=== PATIENT | female | born 1930 | race Caucasian/White ===

== ENCOUNTER 2017-10-02 20:51 | Inpatient (IN) | payer BC ==
[~2017-10-02] VITALS: Ht 167.6 cm; Wt 59.2 kg
[2017-10-02] MEDS ORDERED: IPRATROPIUM BROMIDE 0.5 MG/2.5 ML NEBU NEB ONE (21:30)
[2017-10-02] MEDS ORDERED: ACETAMINOPHEN 650 MG SUPP.RECT RC ONE ×2 (21:30→22:06)
[2017-10-02] MEDS ORDERED: ALBUTEROL SULFATE 2.5 MG/3 ML NEBU NEB ONE (21:30)
[2017-10-02] MEDS ORDERED: ACETAMINOPHEN 325 MG SUPP RC ONE (21:30)
[2017-10-02 21:39] LABS: ABG BASE EXCESS -4.2 mmol/L; ABG PCO2 50.7 mmHg (35.0-45.0); ABG PH 7.275 (7.350-7.450); ABG PO2 74.3 mmHg (75.0-100.0); ABG SITE LEFT BRACHIAL; ABG TOTAL HEMOGLOBIN 14.1 G/dL (12.0-16.0); COHb 1.5 % (0.5-1.5); MetHb 0.2 % (0.0-1.5); O2Hb 91.7 % (94.0-97.0)
[2017-10-02] MEDS ORDERED: IPRATROPIUM BROMIDE 0.5 MG/2.5 ML NEBU ONE (21:40)
[2017-10-02] MEDS ORDERED: ALBUTEROL SULFATE 2.5 MG/3 ML NEBU ONE (21:40)
[2017-10-02] MEDS ORDERED: ACET-2154 PO (21:45)
[2017-10-02] MEDS ORDERED: MELA3TAB PO (21:45)
[2017-10-02] MEDS ORDERED: ALLO100T56 PO (21:45)
[2017-10-02] MEDS ORDERED: SENN-175 PO (21:45)
[2017-10-02] MEDS ORDERED: MULT-1045 PO (21:45)
[2017-10-02] MEDS ORDERED: MAGN400O6 PO (21:45)
[2017-10-02] MEDS ORDERED: DICL1KIT14 TP (21:45)
[2017-10-02] MEDS ORDERED: CARV3.12 PO (21:45)
[2017-10-02] MEDS ORDERED: ASPI-1094 PO (21:45)
[2017-10-02] MEDS ORDERED: CITA10TA17 PO (21:45)
[2017-10-02] MEDS ORDERED: NYST15OI TP (21:45)
[2017-10-02] MEDS ORDERED: QUET25TA34 PO (21:45)
[2017-10-02 21:53] LABS: BASOPHILS # (AUTO) 0.1 K/uL (0.0-8.0); BASOPHILS % (AUTO) 0.5 % (0.0-2.0); EOSINOPHILS % (AUTO) 0.1 % (0.0-7.0); HEMATOCRIT 42.9 % (31.2-41.9); LYMPHOCYTES # (AUTO) 1.9 K/uL (20.0-40.0); LYMPHOCYTES % (AUTO) 10.9 % (20.5-51.5); MEAN CORPUSCULAR HEMOGLOBIN 29.5 uug (24.7-32.8); MEAN CORPUSCULAR HGB CONC 33 g/dL (32.3-35.6); MEAN CORPUSCULAR VOLUME 90.5 fL (75.5-95.3); MONOCYTES % (AUTO) 5.5 % (0.0-11.0); NEUTROPHILS # (AUTO) 14.5 K/uL (1.8-8.9); PLATELET COUNT (AUTO) 341 K/uL (179-408); RED BLOOD CELL COUNT(AUTO) 4.74 MIL/uL (3.63-4.92); WHITE BLOOD COUNT (AUTO) 17.5 K/uL (3.8-11.8)
[2017-10-02 21:56] LABS: CARBON DIOXIDE 25 mmol/L (21-32); CHLORIDE 103 mmol/L (98-107); GLUCOSE 251 mg/dL (74-106); POTASSIUM 3.7 mmol/L (3.5-5.1); UREA NITROGEN, BLOOD 21 mg/dL (7-18)
[2017-10-02] MEDS ORDERED: ACETAMINOPHEN 325 MG SUPP ONE (22:06)
[2017-10-02 22:10] LABS: ALANINE AMINOTRANSFERASE 21 U/L (14-59); ALKALINE PHOSPHATASE 66 U/L (50-136); ASPARTATE AMINOTRANSFERASE 23 U/L (15-37); BILIRUBIN,DIRECT 0.1 mg/dL (0.0-0.2); BILIRUBIN,TOTAL 0.4 mg/dL (0.2-1.0); TOTAL PROTEIN, SERUM 7.2 g/dL (6.4-8.2)
[2017-10-02] MEDS ORDERED: PIPERACILLIN SODIUM/TAZOBACTAM 3.375 G in IV DEXTROSE 5% 50 ML IV ONE (22:15)
[2017-10-02] MEDS ORDERED: METRONIDAZOLE 500 MG/NS 100 ML PIGGYBACK IV ONE (22:15)
[2017-10-02] MEDS ORDERED: IV NORMAL SALINE 1000 ML BAG IV ONE (22:30)
[2017-10-02] MEDS ORDERED: DILTIAZEM HCL 25 MG IV IV ONE (22:45)
[2017-10-02 22:51] LABS: *BLOOD, URINE NEGATIVE (NEGATIVE); *CLARITY,URINE SLIGHTLY CLOUDY (CLEAR); *COLOR,URINE YELLOW (YELLOW); *KETONES,URINE NEGATIVE (NEGATIVE); *PROTEIN,URINE 2+ (NEGATIVE); *UROBILINOGEN,URINE 0.2 E.U./dl (NORMAL); LEUKOCYTE ESTERASE ,URINE NEGATIVE (NEGATIVE); NITRITE, URINE POSITIVE (NEGATIVE); UGLUCOSE NEGATIVE (NEGATIVE)
[2017-10-02 22:57] LABS: *BILIRUBIN,URIN 1+ (NEGATIVE)
[2017-10-02 23:04] LABS: BACTERIA,URINE MODERATE /HPF (NONE SEEN); SQUAMOUS EPITHELIAL CELL,UR MANY /HPF (NONE SEEN); TRANSITIONAL EPI CELLS,URINE MODERATE /LPF (NONE SEEN)
[2017-10-02 23:05] LABS: COARSE GRANULAR CASTS,URINE FEW /LPF; MUCUS,URINE FEW /LPF (0-FEW)
[2017-10-02] MEDS ORDERED: METRONIDAZOLE 500 MG/NS 100ML 100 ML IV ONE (23:33)
--- NOTE | 2017-10-02 23:50 | NUR ---
REPORT GIVEN TO CARISA RIVERA IN CCU.
[2017-10-03] VITALS (22 sets, daily range): BP systolic 94–177; BP diastolic 39–124
--- NOTE | 2017-10-03 00:54 | NUR ---
RECEIVED PT IN ER, WITH SOB. PER MD ORDERS, BLOOD GAS DRAWN AND RESULTS WERE GIVEN TO DR. PINO. HHN TX TOLERATED FAIR. SUCTIONED MODERATED AMOUNT OF BROWN SECRETIONS VIA NASOTRACHEAL. PLACED PT ON BIPAP WITH THE FOLLOWING SETTINGS PER MD VERBAL ORDERS: 15/5, 16 RATE, 100% FIO2. AT APPROX. 0054, TRANSPORTED PATIENT TO CCU VIA [facility]BU BAG, ASSISTED BY NURSE MIGUEL. NO INCIDENT AND NO COMPLICATIONS DURING AND AFTER TRANSPORT. REPORT GIVEN TO RT. AYO
[2017-10-03] MEDS ORDERED: ONDANSETRON 4 MG/2 ML VIAL IV PRN (01:00)
[2017-10-03] MEDS ORDERED: HYDROCODONE/APAP 5-325MG TABLET PO PRN (01:00)
[2017-10-03] MEDS ORDERED: ZOLPIDEM 5 MG TABLET PO PRN (01:00)
--- NOTE | 2017-10-03 01:00 | NUR ---
Received patient from ED. Placed in CCU-3. No acute distress. Vitals stable. Addendum: 10/03/17 at 0122 by SADAF MCNEAL RN Elevated HR 120
--- NOTE | 2017-10-03 01:00 | NUR ---
received patient from ER DX:RESPIRATORY FAILURE /PNA .patient lethargic withdraws to pain . non verbal .open eyes spontaneously on and off ,follow simple commands . on bipap ,breathing even coordianting with bipap . .ST on the heart monitor . connected to ccu monitor
--- NOTE | 2017-10-03 01:00 | NUR ---
Pt. admitted to CCU, under care of Dr. STEWART Belongs List completed
[2017-10-03] MEDS: methylPREDNISolone SOD SUCC 40 MG/ML VIAL IV SCH ×6 (02:18→21:55)
[2017-10-03] MEDS: IV NS 1000 ML 1,000 ML IV PRN ×2 (02:19→18:15)
[2017-10-03] MEDS: PIPERACILLIN/TAZOBACTAM/D5W 50 ML IV SCH ×4 (02:21→18:15)
[2017-10-03] MEDS ORDERED: METRONIDAZOLE 500 MG/NS 100ML 100 ML IV ONE (02:21)
[2017-10-03] MEDS ORDERED: PIPERACILLIN/TAZOBACTAM/D5W 100 ML IV ONE (02:22)
[2017-10-03] MEDS ORDERED: ENOXAPARIN SODIUM 40 MG/0.4 ML DISP.SYRIN SQ SCH (02:45)
[2017-10-03] MEDS: ALBUTEROL SULFATE 2.5 MG/ 0.5 ML NEBU NEB SCH ×6 (03:07→22:49)
[2017-10-03] MEDS: ACETYLCYSTEINE 10% 4ML VIAL NEB SCH ×4 (03:07→22:49)
[2017-10-03] MEDS: IPRATROPIUM BROMIDE 0.5 MG/2.5 ML NEBU NEB SCH ×6 (03:07→22:49)
[2017-10-03 03:26] LABS: ABG BASE EXCESS -7.3 mmol/L; ABG HCO3 17.5 mmol/L; ABG PCO2 33.4 mmHg (35.0-45.0); ABG PH 7.337 (7.350-7.450); ABG SITE LEFT BRACHIAL; ABG TOTAL HEMOGLOBIN 12.9 G/dL (12.0-16.0); COHb 1.2 % (0.5-1.5); MetHb 0.2 % (0.0-1.5); O2Hb 96.8 % (94.0-97.0); VENT MODE BIPAP 15/5
--- NOTE | 2017-10-03 05:29 | NUR ---
Pt remains on BIPAP settings IPAP 15, EPAP 5, set resp. rate 16, FIO2-100%. No resp. distress noted throughout the shift. Pt appears to have manolo'd BIPAP settings well. Vision alarm parameters have been checked and remain audible. BVM at bedside.
[2017-10-03] MEDS: METRONIDAZOLE 500 MG/NS 100ML 500 MG in PREMIXED 1 EACH IV SCH ×3 (05:39→22:00)
--- NOTE | 2017-10-03 11:35 | NUR ---
received patient stable and responsive on bipap machine. discontinued bipap post breathing treatment and suctioned patient for small amount of thick whitish secretions. placed on 7lpm simple mask and patient is saturating 95-98%. dr. roque came in to see the patient but did not order anything of rt.
[2017-10-03] MEDS: MORPHINE SULFATE 2 MG/1 ML DISP.SYRIN IV PRN (17:18)
--- NOTE | 2017-10-03 19:30 | NUR ---
patient in bed asleep easily arousable ,on non rebreather mask at 8 liter /min tolerated non rebreather mask saturation >94% ,no respiratory distress notes . patient non verbal , moved upper extremities but lower extremities very weakness .f/c to bsd . no s/s/ pain . continue to monitor v/s and levels of comfort. .
[2017-10-04] VITALS (23 sets, daily range): BP systolic 108–168; BP diastolic 45–88
[2017-10-04] MEDS: PIPERACILLIN/TAZOBACTAM/D5W 50 ML IV SCH ×4 (00:05→18:30)
[2017-10-04] MEDS: IPRATROPIUM BROMIDE 0.5 MG/2.5 ML NEBU NEB SCH ×6 (02:30→23:19)
[2017-10-04] MEDS: ALBUTEROL SULFATE 2.5 MG/ 0.5 ML NEBU NEB SCH ×6 (02:30→23:19)
[2017-10-04] MEDS: MORPHINE SULFATE 2 MG/1 ML DISP.SYRIN IV PRN ×2 (03:24→20:19)
--- NOTE | 2017-10-04 04:30 | NUR ---
am care done ,changed soiled linens and gown . f/c,skin , oral care done . turned and reposition patient . hob up . npo .
[2017-10-04] MEDS: methylPREDNISolone SOD SUCC 40 MG/ML VIAL IV SCH ×3 (05:07→21:19)
[2017-10-04] MEDS: METRONIDAZOLE 500 MG/NS 100ML 500 MG in PREMIXED 1 EACH IV SCH (05:07)
[2017-10-04 05:58] LABS: CARBON DIOXIDE 23 mmol/L (21-32); CHOLESTEROL 103 mg/dL (<200); GLUCOSE 146 mg/dL (74-106); HDL CHOLESTEROL 71 mg/dL (40-60); MAGNESIUM 1.7 mg/dL (1.8-2.4); TRIGLYCERIDES 34 MG/DL (30-150); UREA NITROGEN, BLOOD 22 mg/dL (7-18)
[2017-10-04 06:00] LABS: BASOPHILS % (AUTO) 0.1 % (0.0-2.0); HEMATOCRIT 30.6 % (31.2-41.9); HEMOGLOBIN 10.1 g/dL (10.9-14.3); LYMPHOCYTES # (AUTO) 0.3 K/uL (20.0-40.0); MEAN CORPUSCULAR HEMOGLOBIN 29.5 uug (24.7-32.8); MEAN CORPUSCULAR HGB CONC 33 g/dL (32.3-35.6); MEAN CORPUSCULAR VOLUME 89.5 fL (75.5-95.3); MONOCYTES # (AUTO) 1.1 K/uL (2.0-10.0); MONOCYTES % (AUTO) 6.2 % (0.0-11.0); NEUTROPHILS % (AUTO) 91.7 % (38.5-71.5); PLATELET COUNT (AUTO) 226 K/uL (179-408); RED BLOOD CELL COUNT(AUTO) 3.41 MIL/uL (3.63-4.92); WHITE BLOOD COUNT (AUTO) 17.5 K/uL (3.8-11.8)
[2017-10-04 06:14] LABS: CHLORIDE 111 mmol/L (98-107); POTASSIUM 3.2 mmol/L (3.5-5.1)
--- NOTE | 2017-10-04 06:43 | NUR ---
: elizabeth came and rounded on patient .spoked with md patient mouth words this time but not coherent .able to open eyes spontaneously.
--- NOTE | 2017-10-04 06:45 | NUR ---
dr: david came evaporator repairer rounded on patient informed PATIENT . doing ST to SR with pac . he said patient on CHF .
[2017-10-04] MEDS: ACETYLCYSTEINE 10% 4ML VIAL NEB SCH ×3 (07:21→23:19)
[2017-10-04] MEDS: MAGNESIUM SULFATE/D5W 100 ML IV SCH ×2 (08:54→09:59)
[2017-10-04] MEDS: POTASSIUM CHLORIDE 50 ML IV SCH ×4 (08:54→12:13)
[2017-10-04] MEDS ORDERED: ENOXAPARIN SODIUM 30 MG/0.3 ML DISP.SYRIN SUBCUT SCH (09:00)
[2017-10-04] MEDS: ENOXAPARIN SODIUM 40 MG/0.4 ML DISP.SYRIN SQ SCH (09:02)
[2017-10-04] MEDS ORDERED: ACETYLCYSTEINE 10% 4ML VIAL NEB SCH (09:45)
[2017-10-04] MEDS: IV NS 1000 ML 1,000 ML IV PRN (12:18)
--- NOTE | 2017-10-04 19:30 | NUR ---
Report received. Patient awake, alert, non verbal and doesn't follow any commands. Assessment completed.
[2017-10-05] VITALS (24 sets, daily range): BP systolic 103–161; BP diastolic 50–94
[2017-10-05] MEDS: LABETALOL HCL 100 MG/20 ML VIAL IV PRN ×2 (00:26→08:39)
[2017-10-05] MEDS: PIPERACILLIN/TAZOBACTAM/D5W 50 ML IV SCH ×4 (00:26→17:22)
--- NOTE | 2017-10-05 00:26 | NUR ---
SBPs above 150; HR 111; Labetalol 20 mg slow IV given. Addendum: 10/05/17 at 0035 by SUSAN LUNA RN Amended: Links added. Addendum: 10/05/17 at 0035 by SUSAN LUNA RN Amended: Links added.
[2017-10-05] MEDS ORDERED: Z GUARD REMEDY PASTE 57 GM TUBE TOP PRN (02:30)
[2017-10-05] MEDS: IPRATROPIUM BROMIDE 0.5 MG/2.5 ML NEBU NEB SCH ×6 (03:12→22:38)
[2017-10-05] MEDS: ALBUTEROL SULFATE 2.5 MG/ 0.5 ML NEBU NEB SCH ×6 (03:13→22:38)
[2017-10-05] MEDS: IV NS 1000 ML 1,000 ML IV PRN ×2 (04:50→20:19)
[2017-10-05 05:11] LABS: BASOPHILS % (AUTO) 0.1 % (0.0-2.0); HEMATOCRIT 30.9 % (31.2-41.9); HEMOGLOBIN 10.1 g/dL (10.9-14.3); LYMPHOCYTES # (AUTO) 0.3 K/uL (20.0-40.0); LYMPHOCYTES % (AUTO) 2.4 % (20.5-51.5); MEAN CORPUSCULAR HEMOGLOBIN 29.3 uug (24.7-32.8); MEAN CORPUSCULAR HGB CONC 33 g/dL (32.3-35.6); MEAN CORPUSCULAR VOLUME 89.9 fL (75.5-95.3); MONOCYTES # (AUTO) 0.7 K/uL (2.0-10.0); MONOCYTES % (AUTO) 4.9 % (0.0-11.0); NEUTROPHILS # (AUTO) 12.6 K/uL (1.8-8.9); NEUTROPHILS % (AUTO) 92.6 % (38.5-71.5); PLATELET COUNT (AUTO) 228 K/uL (179-408); RED BLOOD CELL COUNT(AUTO) 3.44 MIL/uL (3.63-4.92); WHITE BLOOD COUNT (AUTO) 13.6 K/uL (3.8-11.8)
[2017-10-05 05:23] LABS: ALANINE AMINOTRANSFERASE 18 U/L (14-59); ALKALINE PHOSPHATASE 28 U/L (50-136); ASPARTATE AMINOTRANSFERASE 19 U/L (15-37); BILIRUBIN,TOTAL 0.4 mg/dL (0.2-1.0); CARBON DIOXIDE 23 mmol/L (21-32); CHLORIDE 113 mmol/L (98-107); CREATININE 0.8 mg/dL (0.6-1.3); GLUCOSE 128 mg/dL (74-106); MAGNESIUM 2.3 mg/dL (1.8-2.4); POTASSIUM 3.6 mmol/L (3.5-5.1); TOTAL PROTEIN, SERUM 5.8 g/dL (6.4-8.2); UREA NITROGEN, BLOOD 25 mg/dL (7-18)
[2017-10-05] MEDS: methylPREDNISolone SOD SUCC 40 MG/ML VIAL IV SCH ×3 (05:33→21:30)
[2017-10-05] MEDS: MORPHINE SULFATE 2 MG/1 ML DISP.SYRIN IV PRN ×3 (06:22→15:24)
--- NOTE | 2017-10-05 06:30 | NUR ---
No neuro changes. Remains on 10L mask; sat 94-97%. Attempted to insert another IV but unable to. Medicated with Morphine IV for pain.
--- NOTE | 2017-10-05 08:08 | NUR ---
Report received from Renata YOUNGER, 87 yr old female was admitted on 10/02/17 for resp failure and pneumonia. patient is awake is nonverbal. on 02 mask at 10liters /min. patient is taking o2 mask off and seatirates to the 80'son room air. IV fluid NS at 75ml/hr via left forearm #20. khan catheter in place. urine output minimal. ekg is sinus rhythm with frequent pacs. Addendum: 10/05/17 at 0808 by CATHY LAST RN Amended: Links added.
[2017-10-05] MEDS: ACETYLCYSTEINE 10% 4ML VIAL NEB SCH ×3 (08:10→22:38)
--- NOTE | 2017-10-05 08:39 | NUR ---
medicated with labetolol for SBP>150 Addendum: 10/05/17 at 1014 by CATHY LAST RN Amended: Gilson added. Addendum: 10/05/17 at 1017 by CATHY LAST RN Amended: Gilson added.
--- NOTE | 2017-10-05 08:40 | NUR ---
seen by dr Evans. aware of patients yeast in the sputum. Addendum: 10/05/17 at 1017 by CATHY LAST RN Amended: Links added.
[2017-10-05] MEDS: ENOXAPARIN SODIUM 40 MG/0.4 ML DISP.SYRIN SQ SCH (08:42)
--- NOTE | 2017-10-05 09:00 | NUR ---
placed on 4l nc. o2 sat 93-94% Addendum: 10/05/17 at 1012 by CATHY LAST RN Amended: Links added.
[2017-10-05] MEDS ORDERED: hydrALAZINE HCL 20 MG/1 ML VIAL IV PRN (10:30)
[2017-10-05] MEDS: Z GUARD REMEDY PASTE 57 GM TUBE TOP SCH ×2 (10:33→21:15)
[2017-10-05] MEDS ORDERED: FLUCONAZOLE 200 MG/NS 100ML IV 100 MG in PREMIXED 1 EACH IV SCH (11:00)
--- NOTE | 2017-10-05 13:18 | NUR ---
WOUND CARE CONSULT: PT PRESENTS WITH RT JAW RAISED AREA, LEFT HIP AREA WITH DRY SCRATCHES, RT HEEL SCAR, PRESENT ON ADMISSION. SACRAL AREA IS VERY BONY. ALL SKIN PROTECTION RECOMMENDATIONS IN PLACE AND DISCUSSED WITH NURSING STAFF. PT ON FIRST STEP MATTRESS. WILL SEE PRN. CURRENT SYLVIA SCORE IS 12. DEFER TO MD FOR JAW. MD IN AGREEMENT WITH PLAN OF CARE. Addendum: 10/05/17 at 1320 by ILIA QUINN RN Amended: Links added.
[2017-10-05] MEDS: hydrALAZINE HCL 20 MG/1 ML VIAL IV PRN (13:55)
--- NOTE | 2017-10-05 13:55 | NUR ---
medicated with apresoline for sbp>160 Addendum: 10/05/17 at 1502 by CATHY LAST RN Amended: Links added.
--- NOTE | 2017-10-05 15:24 | NUR ---
medicated for generalized restlessness Addendum: 10/05/17 at 1529 by CATHY LAST RN Amended: Gilson added. Addendum: 10/05/17 at 1530 by CATHY LAST RN Amended: Gilson added.
[2017-10-05] MEDS ORDERED: CARVEDILOL 3.125 MG TABLET PO SCH (18:00)
--- NOTE | 2017-10-05 18:00 | NUR ---
coreg given with applesauce. pureed diet served. richard rincon at bedside. patient slow in eating, neeind lots of rest, mckenzie verbalized patient has tendency to pocket food in the mouth. patient tolerated 50% of dinner Addendum: 10/05/17 at 1928 by CATHY LAST RN Amended: Links added.
--- NOTE | 2017-10-05 19:30 | NUR ---
Report received. Patient sleeping, easily arouses to name, but non verbal. Had just finished dinner; kept on high back rest. Respirations regular non labored. Sat 94% on 5L NC O2. Addendum: 10/06/17 at 0017 by SUSAN LUNA RN Amended: Links added.
[2017-10-06] VITALS (14 sets, daily range): BP systolic 132–164; BP diastolic 61–102
[2017-10-06] MEDS: PIPERACILLIN/TAZOBACTAM/D5W 50 ML IV SCH ×4 (00:29→20:32)
[2017-10-06] MEDS: ALBUTEROL SULFATE 2.5 MG/ 0.5 ML NEBU NEB SCH ×6 (03:09→22:52)
[2017-10-06] MEDS: IPRATROPIUM BROMIDE 0.5 MG/2.5 ML NEBU NEB SCH ×6 (03:09→22:52)
[2017-10-06] MEDS: MORPHINE SULFATE 2 MG/1 ML DISP.SYRIN IV PRN (04:20)
[2017-10-06] MEDS: LABETALOL HCL 100 MG/20 ML VIAL IV PRN (05:24)
[2017-10-06] MEDS: methylPREDNISolone SOD SUCC 40 MG/ML VIAL IV SCH ×3 (05:27→21:34)
[2017-10-06] MEDS: hydrALAZINE HCL 20 MG/1 ML VIAL IV PRN (06:33)
--- NOTE | 2017-10-06 07:00 | NUR ---
No neuro changes. Awake, still non verbal. Medicated with Morphine, Labetalol and Hydralazine IV. Effective. Urine output marginal. IV at 75 ml/H.
[2017-10-06] MEDS: ACETYLCYSTEINE 10% 4ML VIAL NEB SCH (07:27)
--- NOTE | 2017-10-06 07:30 | NUR ---
RECIEVED LYING IN BED, AWAKE, NON VERBAL , UNABLE TO FOLLOW COMMANDS. COLO IS GOOD. EXTREMETIES ARE STIFF. HR-SR-ST WITH OCCASSIONAL PAC AND PVC. SBP WITHIN NORMAL LIMITS. SEEN AND EXAMINED BY DR KAYLA GATES. IVF IS DISCONTINUED. IV SITE INTACT, G20 LEFT FA. AFEBRILE.
[2017-10-06] MEDS ORDERED: CARVEDILOL 3.125 MG TABLET PO SCH (08:00)
[2017-10-06 08:02] LABS: BASOPHILS % (AUTO) 0.3 % (0.0-2.0); HEMOGLOBIN 10.4 g/dL (10.9-14.3); LYMPHOCYTES # (AUTO) 0.4 K/uL (20.0-40.0); LYMPHOCYTES % (AUTO) 3.4 % (20.5-51.5); MEAN CORPUSCULAR HEMOGLOBIN 29.3 uug (24.7-32.8); MEAN CORPUSCULAR HGB CONC 33 g/dL (32.3-35.6); MEAN CORPUSCULAR VOLUME 89.6 fL (75.5-95.3); MONOCYTES # (AUTO) 0.3 K/uL (2.0-10.0); MONOCYTES % (AUTO) 2.6 % (0.0-11.0); NEUTROPHILS # (AUTO) 10.9 K/uL (1.8-8.9); NEUTROPHILS % (AUTO) 93.7 % (38.5-71.5); PLATELET COUNT (AUTO) 262 K/uL (179-408); RED BLOOD CELL COUNT(AUTO) 3.57 MIL/uL (3.63-4.92); WHITE BLOOD COUNT (AUTO) 11.6 K/uL (3.8-11.8)
[2017-10-06 08:12] LABS: CARBON DIOXIDE 22 mmol/L (21-32); CHLORIDE 116 mmol/L (98-107); CREATININE 0.8 mg/dL (0.6-1.3); GLUCOSE 124 mg/dL (74-106); MAGNESIUM 2.1 mg/dL (1.8-2.4); PHOSPHOROUS 2.2 mg/dL (2.5-4.9); POTASSIUM 3.2 mmol/L (3.5-5.1); UREA NITROGEN, BLOOD 29 mg/dL (7-18)
--- NOTE | 2017-10-06 08:30 | NUR ---
NO APPARENT RESPIRATORY DISTRESS NOTED. O2 ON 5LNC WITH HUMIDIFIER, SATURATING AT 88-94%. TOTAL ASSIST IN FEEDING PT. TOLERATED VERY WELL HER PUREED DIET. NO BM AT THIS TIME.
[2017-10-06] MEDS: CARVEDILOL 6.25 MG TABLET PO SCH ×2 (08:47→17:38)
[2017-10-06] MEDS: ASPIRIN 81 MG TAB.CHEW PO SCH (08:47)
[2017-10-06] MEDS: ENOXAPARIN SODIUM 40 MG/0.4 ML DISP.SYRIN SQ SCH (08:50)
[2017-10-06] MEDS: Z GUARD REMEDY PASTE 57 GM TUBE TOP SCH ×2 (09:33→20:34)
--- NOTE | 2017-10-06 12:00 | NUR ---
POTASSIUM PHOSPHATE 7.5MMOL GIVEN TO THE PT IVPB FOR LOWK AND PHOSPHOROUS ORDERED.
[2017-10-06] MEDS: POTASSIUM PHOSPHATE MM 7.5 MMOL in IV DEXTROSE 5% 100 ML IV SCH ×2 (12:04→14:51)
--- NOTE | 2017-10-06 12:30 | NUR ---
SON CAME IN AND INFORMED OF POSSIBILITY FOR TRANSFERRING PT ON TELEMETRY UNIT.
--- NOTE | 2017-10-06 13:30 | NUR ---
SEEN AND EXAMINED BY DR AGUILERA WITH NEW NADIA FAIRCHILD TO TRANSFER PT OUT IN TELEMETRY.
--- NOTE | 2017-10-06 14:30 | NUR ---
REPORT GIVEN TO SALINA HOOKS. PT TRANSFERED TO 207 VIA BED. HOB UP AT 35DEGREES. CONDITION IS STABLE.
--- NOTE | 2017-10-06 15:07 | NUR ---
PT RECEIVED FRON ICU VIA BED IN STABLE CONDITION
--- NOTE | 2017-10-06 22:50 | NUR ---
RECEIVED PT LYING IN BED. ALERT BUT NON-VERBAL, CONFUSED AND DISORIENTED. INNO ACUTE DISTRESS. ON O2 AT 4LPM VIA NC IN PLACE. IV SITE ON LFA INTACT AND PATENT. FC INTACT AND DRAINING VIA GRAVITY. SAFETY MEASURE INITIATED.
[2017-10-07] VITALS: BP 118/94
[2017-10-07] MEDS: PIPERACILLIN/TAZOBACTAM/D5W 50 ML IV SCH ×4 (01:05→18:08)
[2017-10-07] MEDS: IPRATROPIUM BROMIDE 0.5 MG/2.5 ML NEBU NEB SCH ×6 (02:30→23:30)
[2017-10-07] MEDS: ALBUTEROL SULFATE 2.5 MG/ 0.5 ML NEBU NEB SCH ×6 (02:30→23:30)
[2017-10-07 04:00] VITALS: BP 156/97
[2017-10-07] MEDS: ACETAMINOPHEN 325 MG TABLET PO PRN (04:22)
[2017-10-07] MEDS: methylPREDNISolone SOD SUCC 40 MG/ML VIAL IV SCH (06:00)
--- NOTE | 2017-10-07 06:16 | NUR ---
PATIENT ALERT BUT NON-VERBAL, CONFUSED AND DISORIENTED. ABLE TO MAKE EYE CONTACT WHEN SPOKEN TO. ON CONTINUOUS O2 AT 4LPM VIA NC, BUT PT TENDS TO REMOVE IT. IN NO ACUTE DISTRESS. O2 SAT AT 92%. SR ON TELE 82/MIN WITH SOME PAC'S. IV SITE ON LFA REMAINS INTACT AND PATENT. NO ADVERSE REACTION FROM IV ABX NOTED. FC INTACT AND PATENT, DRAINING VIA GRAVITY. URINE OUTPUT MARY ELLEN IN COLOR. PT BEDBOUND AND REQUIRES TOTAL CARE. TURN AND REPOSITION FREQUENTLY. NEEDS ANTICIPATED TO AND MET. SAFETY MEASURE MAINTAINED.
--- NOTE | 2017-10-07 08:00 | NUR ---
RESTING IN BED WITH NO SS OF DISTRESS OR PAIN, O2 NC AT 4L SATURATING 93% CLOSELY MONITORED. SR ON MONITOR
[2017-10-07] MEDS: ASPIRIN 81 MG TAB.CHEW PO SCH (09:06)
[2017-10-07] MEDS: CARVEDILOL 6.25 MG TABLET PO SCH ×2 (09:07→18:10)
[2017-10-07] MEDS: Z GUARD REMEDY PASTE 57 GM TUBE TOP SCH ×2 (09:07→21:50)
[2017-10-07] MEDS: ENOXAPARIN SODIUM 40 MG/0.4 ML DISP.SYRIN SQ SCH (09:09)
[2017-10-07] MEDS ORDERED: CLONIDINE-TTS 1 PATCH TD SCH (10:00)
--- NOTE | 2017-10-07 10:00 | NUR ---
DR NAPOLES NOTED LOW K WITH ORDERS K SUPPLEMENT GIVEN
[2017-10-07 11:26] VITALS: BP 139/65
[2017-10-07] MEDS ORDERED: POTASSIUM CHLORIDE 20 MEQ POWDER PACKET PO ONE (11:45)
--- NOTE | 2017-10-07 13:19 | NUR ---
NO ACUTE CHANGE REMAINS SR ON MONITOR
[2017-10-07 15:07] VITALS: BP 126/78
--- NOTE | 2017-10-07 17:42 | NUR ---
continue current tx plan. no acute change
--- NOTE | 2017-10-07 19:05 | NUR ---
RECEIVED PT ASLEEP ON BED COMFORTABLY. PT IV INTACT AND PATENT. PT ON 4L NASAL CANULA. PT SHOWS NO SIGNS OF DISTRESS. BED ALARM ON, CALL LIGHT WITHIN REACH, SIDE [id number]. SAFETY AND COMFORT PROVIDED. WILL CONTINUE TO MONITOR.
--- NOTE | 2017-10-07 19:15 | NUR ---
PT ALERT BUT CONFUSED AND DISORIENTED. ABLE TO MAKE EYE CONTACT WHEN SPOKEN TO. NO S/SX OF PAIN OR SOB NOTED. IN NO ACUTE DISTRESS. O2 SAT AT 93% WITH 4LPM OF O2 VIA NC IN PLACE/ IV SITE INTACT AND PATENT. IV ABX INFUSING. RUE KEPT ELEVATED WITH PILLOWS. STILL WITH SOME SWELLING NOTED. PT SON AT BEDSIDE. SAFETY MEASURE INITIATED.
[2017-10-07 20:00] VITALS: BP 148/76
[2017-10-08] MEDS: PIPERACILLIN/TAZOBACTAM/D5W 50 ML IV SCH ×4 (00:26→17:47)
[2017-10-08] MEDS: ALBUTEROL SULFATE 2.5 MG/ 0.5 ML NEBU NEB SCH ×6 (03:26→22:30)
[2017-10-08] MEDS: IPRATROPIUM BROMIDE 0.5 MG/2.5 ML NEBU NEB SCH ×6 (03:26→22:30)
[2017-10-08 04:44] VITALS: BP 160/78
[2017-10-08 04:56] VITALS: BP 122/77
--- NOTE | 2017-10-08 06:01 | NUR ---
PATIENT SLEPT WELL AT NIGHT. AROUSE TO VERBAL AND TACTILE STIMULI. NON-VERBAL, CONFUSED AND DISORIENTED. ON CONTINUOUS O2 AT 4LPM VIA NC. O2 SAT AT 93%. IN NO ACUTE DISTRESS. IV SITE ON LFA REMAINS INTACT AND PATENT. NO ADVERSE REACTION FROM IV ABX NOTED. TURN AND REPOSITION FREQUENTLY. KEPT RUE ELEVATED WITH PILLOWS. NEEDS ANTICIPATED TO AND MET. SAFETY MEASURE MAINTAINED.
--- NOTE | 2017-10-08 07:08 | NUR ---
resting comfortably with no ss of pain or distress on 4l nc saturating 93-94%
[2017-10-08] MEDS: ASPIRIN 81 MG TAB.CHEW PO SCH (08:35)
[2017-10-08] MEDS: CARVEDILOL 6.25 MG TABLET PO SCH ×2 (08:37→17:30)
[2017-10-08] MEDS: ENOXAPARIN SODIUM 40 MG/0.4 ML DISP.SYRIN SQ SCH (08:38)
[2017-10-08] MEDS: Z GUARD REMEDY PASTE 57 GM TUBE TOP SCH ×2 (08:39→21:16)
[2017-10-08 11:39] VITALS: BP 126/79
--- NOTE | 2017-10-08 12:00 | NUR ---
NO ACUTE CHANGE CONTINUE IV ANTIBIOTIC ORDERED. O2 REMAINS AT 4L NC SAT 95%
--- NOTE | 2017-10-08 15:10 | NUR ---
CLOSELY MONITORED FOR HIGH BP, NO SS OF DISTRESS OR ACUTE PAIN
[2017-10-08 15:45] VITALS: BP 136/69
--- NOTE | 2017-10-08 19:20 | NUR ---
RECEIVED PT LYING IN BED. ALERT BUT NON-VERBAL, CONFUSED AND DISORIENTED. IN NO ACUTE DISTRESS. ON O2 AT 4LPM VIA NC IN PLACE. O2 SAT AT 94%. IV SITE ON LFA STILL INTACT AND PATENT. RUE ELEVATED WITH PILLOWS. SAFETY MEASURE INITIATED.
[2017-10-08 20:00] VITALS: BP 151/75
[2017-10-09] MEDS: PIPERACILLIN/TAZOBACTAM/D5W 50 ML IV SCH ×4 (00:12→17:48)
[2017-10-09] MEDS: ALBUTEROL SULFATE 2.5 MG/ 0.5 ML NEBU NEB SCH ×6 (03:06→23:14)
[2017-10-09] MEDS: IPRATROPIUM BROMIDE 0.5 MG/2.5 ML NEBU NEB SCH ×6 (03:06→23:14)
[2017-10-09 05:24] VITALS: BP 129/72
--- NOTE | 2017-10-09 06:17 | NUR ---
PT ALERT, ABLE TO MAKE EYE CONTACT WHEN SPOKEN TO. NON-VERBAL. IN NO ACUTE DISTRESS. O2 SAT AT 94% WITH O2 AT 4LPM VIA NC IN PLACE. IV SITE ON LFA REMAINS INTACT AND PATENT. NO SIDE EFFECT NOTED FROM IV ABX. TURN AND REPOSITION FOR COMFORT. KEPT RUE ELEVATED WITH PILLOWS. SWELLING DECREASED. NEEDS ANTICIPATED TO AND MET. SAFETY MEASURE MAINTAINED.
[2017-10-09 06:58] LABS: BASOPHILS % (AUTO) 0.1 % (0.0-2.0); EOSINOPHILS # (AUTO) 0.1 K/uL (0.0-0.7); EOSINOPHILS % (AUTO) 0.8 % (0.0-7.0); HEMATOCRIT 30.5 % (31.2-41.9); HEMOGLOBIN 10.5 g/dL (10.9-14.3); LYMPHOCYTES # (AUTO) 0.7 K/uL (20.0-40.0); LYMPHOCYTES % (AUTO) 7.3 % (20.5-51.5); MEAN CORPUSCULAR HEMOGLOBIN 30.2 uug (24.7-32.8); MEAN CORPUSCULAR HGB CONC 34 g/dL (32.3-35.6); MEAN CORPUSCULAR VOLUME 88.1 fL (75.5-95.3); MONOCYTES % (AUTO) 10.3 % (0.0-11.0); NEUTROPHILS # (AUTO) 8.1 K/uL (1.8-8.9); NEUTROPHILS % (AUTO) 81.5 % (38.5-71.5); PLATELET COUNT (AUTO) 237 K/uL (179-408); RED BLOOD CELL COUNT(AUTO) 3.46 MIL/uL (3.63-4.92); WHITE BLOOD COUNT (AUTO) 9.9 K/uL (3.8-11.8)
[2017-10-09 07:03] LABS: ALANINE AMINOTRANSFERASE 21 U/L (14-59); ALKALINE PHOSPHATASE 35 U/L (50-136); ASPARTATE AMINOTRANSFERASE 20 U/L (15-37); BILIRUBIN,TOTAL 0.5 mg/dL (0.2-1.0); CARBON DIOXIDE 34 mmol/L (21-32); CHLORIDE 109 mmol/L (98-107); CREATININE 0.6 mg/dL (0.6-1.3); GLUCOSE 82 mg/dL (74-106); MAGNESIUM 1.8 mg/dL (1.8-2.4); PHOSPHOROUS 2.6 mg/dL (2.5-4.9); TOTAL PROTEIN, SERUM 5.1 g/dL (6.4-8.2); UREA NITROGEN, BLOOD 17 mg/dL (7-18)
[2017-10-09 07:12] LABS: POTASSIUM 2.5 mmol/L (3.5-5.1)
--- NOTE | 2017-10-09 08:00 | NUR ---
RESTING IN BED AWAKE ALERT AND CONFUSE X3 NO SS OF PAIN OR DISTRESS.
[2017-10-09] MEDS: ASPIRIN 81 MG TAB.CHEW PO SCH (08:24)
[2017-10-09] MEDS: CARVEDILOL 6.25 MG TABLET PO SCH ×2 (08:27→17:48)
[2017-10-09] MEDS: ENOXAPARIN SODIUM 40 MG/0.4 ML DISP.SYRIN SQ SCH (08:28)
[2017-10-09] MEDS: Z GUARD REMEDY PASTE 57 GM TUBE TOP SCH ×2 (08:29→21:36)
[2017-10-09] MEDS: POTASSIUM CHLORIDE 20 MEQ TAB.PRT.SR PO SCH ×2 (10:42→17:48)
[2017-10-09 11:51] VITALS: BP 132/51
--- NOTE | 2017-10-09 12:00 | NUR ---
NO ACUTE CHANGE
--- NOTE | 2017-10-09 15:13 | NUR ---
SEEN BY ID WILL CONTINUE IV ANTIBIOTIC X7 MORE DAYS. PATIENT REMAINS AFEBRILE
[2017-10-09 15:35] VITALS: BP 123/60
--- NOTE | 2017-10-09 18:42 | NUR ---
AWAITING DC PLANNING, PATIENT STABLE
[2017-10-09 21:12] VITALS: BP 109/53
[2017-10-10] MEDS: PIPERACILLIN/TAZOBACTAM/D5W 50 ML IV SCH ×2 (00:33→06:08)
[2017-10-10] MEDS: IPRATROPIUM BROMIDE 0.5 MG/2.5 ML NEBU NEB SCH ×5 (02:19→19:26)
[2017-10-10] MEDS: ALBUTEROL SULFATE 2.5 MG/ 0.5 ML NEBU NEB SCH ×5 (02:19→19:26)
[2017-10-10 06:19] LABS: CARBON DIOXIDE 31 mmol/L (21-32); CHLORIDE 108 mmol/L (98-107); CREATININE 0.6 mg/dL (0.6-1.3); GLUCOSE 88 mg/dL (74-106); MAGNESIUM 1.7 mg/dL (1.8-2.4); PHOSPHOROUS 2.4 mg/dL (2.5-4.9); POTASSIUM 3.5 mmol/L (3.5-5.1); UREA NITROGEN, BLOOD 15 mg/dL (7-18)
[2017-10-10 06:20] LABS: BASOPHILS % (AUTO) 0.2 % (0.0-2.0); EOSINOPHILS # (AUTO) 0.4 K/uL (0.0-0.7); EOSINOPHILS % (AUTO) 4.2 % (0.0-7.0); LYMPHOCYTES # (AUTO) 0.8 K/uL (20.0-40.0); LYMPHOCYTES % (AUTO) 7.6 % (20.5-51.5); MEAN CORPUSCULAR HEMOGLOBIN 29.8 uug (24.7-32.8); MEAN CORPUSCULAR HGB CONC 34 g/dL (32.3-35.6); MEAN CORPUSCULAR VOLUME 88.1 fL (75.5-95.3); MONOCYTES # (AUTO) 0.9 K/uL (2.0-10.0); MONOCYTES % (AUTO) 8.3 % (0.0-11.0); NEUTROPHILS # (AUTO) 8.3 K/uL (1.8-8.9); NEUTROPHILS % (AUTO) 79.7 % (38.5-71.5); PLATELET COUNT (AUTO) 261 K/uL (179-408); WHITE BLOOD COUNT (AUTO) 10.4 K/uL (3.8-11.8)
[2017-10-10 06:22] VITALS: BP 124/82
[2017-10-10 06:24] LABS: HEMOGLOBIN 10.2 g/dL (10.9-14.3)
--- NOTE | 2017-10-10 08:00 | NUR ---
AWAKE FORGETFUL CONFUSED NO SOB OR PAIN CONTINUE O2 AT 3L O2 SAT WNL AND ON ASPIRATION /FALL PRECAUTION BED ALARM ON AND CALL LIGHT IN REACH AND REMIND TO CALL WHEN NEEDED
[2017-10-10] MEDS: ASPIRIN 81 MG TAB.CHEW PO SCH (08:29)
[2017-10-10] MEDS: CARVEDILOL 6.25 MG TABLET PO SCH ×2 (08:29→18:00)
[2017-10-10] MEDS: ACETAMINOPHEN 325 MG TABLET PO PRN (08:29)
[2017-10-10] MEDS: Z GUARD REMEDY PASTE 57 GM TUBE TOP SCH ×2 (08:30→21:03)
--- NOTE | 2017-10-10 10:00 | NUR ---
D/C PLANNING N REGARDING GO TO TODAY AND [facility] TEL [id number] WILL F/U AT EXPLAINED TO SON VERBALIZES UNDERSTAND
[2017-10-10 11:38] VITALS: BP 106/52
[2017-10-10] MEDS: MAGNESIUM SULFATE/D5W 100 ML IV SCH ×2 (15:22→16:19)
[2017-10-10] MEDS ORDERED: NEUTRA PHOS PACKET PO ONE (15:30)
[2017-10-10 16:07] VITALS: BP 102/59
[2017-10-10] MEDS ORDERED: ACET325T53 PO (17:10)
[2017-10-10] MEDS ORDERED: CLON1PAT TD (17:10)
[2017-10-10] MEDS ORDERED: CARV6.252 PO (17:10)
[2017-10-10] MEDS ORDERED: LEVO500T2 PO (17:25)
--- NOTE | 2017-10-10 19:30 | NUR ---
Received patient laying comfortably in bed. A/O x 1. No acute distress noted. Patient is on O2 2L NC. On specialty mattress. No IV site. Patient is D/C'd waiting for transport team, going to [facility]. Safety initiated. Call light within reach. Will continue to monitor.
[2017-10-10 20:01] VITALS: BP 135/90
--- NOTE | 2017-10-10 22:40 | NUR ---
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 Son at bedside. Vital signs stable. No acute distress noted.
== END 2017-10-10 23:48 | disposition hospice, home (50) | DRG 871 ==
LOC: ER 20:51 → CCU 23:44 → TELE 10-06 14:45 → MED 10-07 13:31
PROVIDERS: ADMIT Internal Medicine; ATTEND Nurse Practitioner Acute Care
PROC: 5A09357 Assistance with Respiratory Ventilation, Less than 24 Consecutive Hours, Continuous Positive Airway Pressure (ICD-10-PCS; principal; 2017-10-02)
DX: A41.9 Sepsis, unspecified organism (principal); J69.0 Pneumonitis due to inhalation of food and vomit; I21.A1 Myocardial infarction type 2; E43 Unspecified severe protein-calorie malnutrition; J96.01 Acute respiratory failure with hypoxia; J96.02 Acute respiratory failure with hypercapnia; I50.33 Acute on chronic diastolic (congestive) heart failure; G92 Toxic encephalopathy; D68.59 Other primary thrombophilia; E83.42 Hypomagnesemia; E87.2 Acidosis; J44.1 Chronic obstructive pulmonary disease with (acute) exacerbation; N39.0 Urinary tract infection, site not specified; I07.1 Rheumatic tricuspid insufficiency; E87.6 Hypokalemia; I11.0 Hypertensive heart disease with heart failure; F03.90 Unspecified dementia, unspecified severity, without behavioral disturbance, psychotic disturbance, mood disturbance, and anxiety; I25.10 Atherosclerotic heart disease of native coronary artery without angina pectoris; R65.20 Severe sepsis without septic shock; E86.0 Dehydration; D63.8 Anemia in other chronic diseases classified elsewhere; I48.91 Unspecified atrial fibrillation; Z68.21 Body mass index [BMI] 21.0-21.9, adult; Z87.891 Personal history of nicotine dependence
CPT/HCPCS: 36415; 36600; 70030-TC; 71045; 83605; 83735; 84100; 84443; 85025; 85730; 87040; 87070; 87086; 92526; 92610; 93005; 93307; 94640; 94660; 94664; A4217; A4663; J0360; J1450; J1650; J2270; J2543; J2920; J3475; J3480; J3490; J3590; J7030; J7050; J7060